=== PATIENT | female | born 1995 | race Caucasian/White ===

== ENCOUNTER 2019-05-27 12:58 | Inpatient (IN) | payer MEDICAID ==
[~2019-05-27] VITALS: Ht 170.2 cm; Wt 72.4 kg
[~2019-05-27 12:58] MED LIST: PREN1TAB13 PO
[2019-05-27] MEDS ORDERED: MAGNESIUM SULFATE 4 GM/100 ML 100 ML IV ONE (14:30)
[2019-05-27] MEDS: LACTATED RINGER'S 1,000 ML IV SCH (14:49)
[2019-05-27] MEDS: BETAMET NA PHOS/AC (6 MG/ML) 2 ML INJ SYG IM SCH (15:30)
[2019-05-27] MEDS: MAGNESIUM SULFATE 40GM/1000ML 1,000 ML IV SCH (15:36)
[2019-05-27 17:14] VITALS: Ht 170.2 cm; Wt 72.4 kg
[2019-05-28] MEDS: MAGNESIUM SULFATE 40GM/1000ML 1,000 ML IV SCH (10:53)
[2019-05-28] MEDS: LACTATED RINGER'S 1,000 ML IV SCH (15:00)
[2019-05-28] MEDS: BETAMET NA PHOS/AC (6 MG/ML) 2 ML INJ SYG IM SCH (15:54)
== END 2019-05-29 13:00 | disposition home or self-care (01) | DRG 833 ==
LOC: L-D 12:58
PROVIDERS: ADMIT Obstetrics & Gynecology; ATTEND Obstetrics & Gynecology
DX: O26.872 Cervical shortening, second trimester (principal)
CPT/HCPCS: 76817; 81001; 83735; 86900; 86901; 87086; J0702; J7120